=== PATIENT | female | born 1960 | race Caucasian/White ===

== ENCOUNTER 2025-06-18 05:17 | Observation (INO) ==
--- NOTE | 2025-05-14 11:24 | PAT Medication Instructions ---
Medication Instructions Date of Service May 14, 2025 Home Medications lysine 500 mg tablet 500 mg PO QAM multivitamin 1 tab PO QAM paroxetine HCl 10 mg tablet (Paxil) 10 mg PO QAM STOP taking 2 weeks before surgery (or as soon as possible if surgery is within 2 weeks) lysine 500 mg tablet 500 mg PO QAM DO NOT take the morning of surgery multivitamin 1 tab PO QAM Take morning of surgery With a small sip of water, OTHERWISE NOTHING TO EAT OR DRINK AFTER MIDNIGHT: paroxetine HCl 10 mg tablet (Paxil) 10 mg PO QAM Other Notes If you have any questions please call us at [phone] or [phone] or [phone] or [phone]
--- NOTE | 2025-05-18 10:20 | Anesthesiology Consultation ---
Date of Service May 18, 2025 Assessment & Plan (1) Encounter for pre-operative examination: - Outpatient joint assessment: Patient is currently scheduled for inpatient pathway. If re-evaluated and patient/surgeon requests outpatient pathway, patient is acceptable candidate for outpatient joint program from anesthesia standpoint pending surgeon's office assessment of pt motivation/support/completion of same day joint program preop requirements. Chart Review Chart Review: Acceptable Risk for Surgery and Patient seen in Pre Admission Testing Teaching & Discussion Pre-Anesthesia Teaching/Discussion Notes: Instructed NPO after midnight before surgery, except medications with 15 cc of water. Medication instructions provided according to the PAT guidelines. History Surgery Operation Date: 06/18/25 10:15 Proposed Procedures p Left Anterior Total Hip Arthroplasty - Luciano Mead, Height/Weight Height: 5 ft 4 in Weight: 71.7 kg Allergies Allergy/AdvReac Type Severity Reaction Status Date / Time pseudoephedrine Allergy Severe heart Verified 05/14/25 09:21 racing, "lips turned blue" shellfish derived Allergy Severe throat Verified 05/14/25 09:24 swelling Penicillins Allergy Intermediate Rash Verified 05/14/25 09:21 sulfamethoxazole Allergy Intermediate Rash Verified 05/14/25 09:21 [From Bactrim] trimethoprim [From Bactrim] Allergy Intermediate Rash Verified 05/14/25 09:21 Medications Home Medications Medication Instructions Recorded Confirmed Last Taken lysine 500 mg tablet 500 mg PO QAM 05/14/25 05/14/25 Unknown multivitamin 1 tab PO QAM 05/14/25 05/14/25 Unknown paroxetine HCl 10 mg tablet (Paxil) 10 mg PO QAM 05/14/25 05/14/25 Unknown Past Medical History Medical History Anxiety Osteoarthritis Patient denies h/o stroke, seizures, heart attack, heart failure, DM, HTN, blood clots/DVTs or blood transfusions. Exercise / Class Metabolic Activity II 4-5 Yardwork/Stairs/Walk up hill (denies chest discomfort or shortness of breath with one flight of stairs) Past Family History Family History (Updated 05/18/25 @ 10:32 by Bibi Snyder PA-C) Mother History of anesthesia reaction pt unsure of the anesthesia problems - denies any temperature regulatory issues, denies the need for a ventilator after anesthesia. PONV. Past Surgical History Surgical History (Updated 05/18/25 @ 10:32 by Bibi Snyder PA-C) H/O removal of cyst left middle finger History of dental surgery extraction History of laparoscopy exploratory for infertility S/P colonoscopy with polypectomy Past Anesthesia History Other (see above family history re anesthesia) History of PONV No Hx of PONV and No Hx of Motion Sickness Social History Smoking Status: Former smoker Do You Dip or Chew Tobacco: No Smoking End Date: ~2016 Hx Alcohol Use: Yes Alcohol type: wine Alcohol Intake Frequency Comment: 2-4 glasses of wine daily; denies any h/o withdrawal Hx Substance Use: No substance use type: does not use Review of Systems Snoring, denies witnessed apneas. Patient denies chest pain, shortness of breath, dyspnea on exertion, reflux, fever, chills, cough, wheezing, or palpitations. Physical Exam Vital Signs Vitals BP 123/78 P 74 TEMP 98.3 SP02 94% on RA RESP 18 Physical Patient resting comfortably in chair in no acute distress, alert and oriented, responding appropriately throughout visit Full cervical extension range of motion without pain TMD 3.5 finger breadths Mallampati Score 2 Dentition: several missing teeth, denies chipped or loose teeth, caps/crowns, i mplants or bridges Lungs: normal respiratory effort. Good air movement, clear throughout to auscultation, no adventitious breath sounds Cardiac: regular rate and rhythm, no murmurs noted Carotid arteries: negative bruit bilat Lab Results Anesthesia Preop Results Results Anesthesia Widget: WBC 7.04 K/ul (4.8-10.8) 05/18/25 Hgb 12.8 g/dl (12.0-16.0) 05/18/25 Hct 38.2 % (37.0-47.0) 05/18/25 Plt 302 K/uL (130-400) 05/18/25 Na 136 mmol/L (136-145) 05/18/25 K 4.8 mmol/L (3.5-5.1) 05/18/25 Cl 102 mmol/L (98-107) 05/18/25 CO2 28 mmol/L (21-32) 05/18/25 BUN 15 mg/dl (6-23) 05/18/25 Creat 0.58 mg/dl (0.6-1.2) L 05/18/25 Glucose Level 92 mg/dl (70-99(Fasting)) 05/18/25 PT 10.6 Seconds (9.0-12.0) 05/18/25 PTT 26 Seconds (21-31) 05/18/25 INR 1.0 (0.9-1.1) 05/18/25 Blood Type AB Positive 05/18/25 Antibody Screen NEGATIVE 05/18/25 Testing Electrocardiogram Date: 05/18/25 NSR, rate [address] abnormality Other Testing Chest CT Low dose scan 07/21/24 Mild emphysematous changes. Bibasilar subsegmental atelectatic changes. Multiple pulmonary nodules, benign appearance of behavior. No new/unknown potentially significant incidental findings requiring additional evaluation
--- NOTE | 2025-06-14 11:52 | History & Physical Report ---
Date of Service June 14, 2025 History of Present Illness Chief Complaint: Osteoarthritis left hip. Primary Care Provider: NO PCP Mana is a pleasant 65-year-old female who has been dealing with chronic increasing left hip and groin pain. She saw another provider in our office. X- rays and clinical exam have been diagnostic for advanced arthritis of left hip. After failing conservative treatment, she has elected proceed with a left anterior total of arthroplasty. Allergies Allergy/AdvReac Type Severity Reaction Status Date / Time pseudoephedrine Allergy Severe heart Verified 05/14/25 09:21 racing, "lips turned blue" shellfish derived Allergy Severe throat Verified 05/14/25 09:24 swelling Penicillins Allergy Intermediate Rash Verified 05/14/25 09:21 sulfamethoxazole Allergy Intermediate Rash Verified 05/14/25 09:21 [From Bactrim] trimethoprim [From Bactrim] Allergy Intermediate Rash Verified 05/14/25 09:21 Home Medications Medication Instructions Recorded Confirmed Type lysine 500 mg tablet 500 mg PO QAM 05/14/25 05/14/25 History multivitamin 1 tab PO QAM 05/14/25 05/14/25 History paroxetine HCl 10 mg tablet (Paxil) 10 mg PO QAM 05/14/25 05/14/25 History Past Med/Surg History Problem List Encounter for pre-operative examination Osteoarthritis of left hip Medical History Anxiety Osteoarthritis Surgical History (Updated 05/18/25 @ 10:32 by Bibi Snyder PA-C) History of dental surgery extraction H/O removal of cyst left middle finger History of laparoscopy exploratory for infertility S/P colonoscopy with polypectomy Family History (Updated 05/18/25 @ 10:32 by Bibi Snyder PA-C) Mother History of anesthesia reaction pt unsure of the anesthesia problems - denies any temperature regulatory issues, denies the need for a ventilator after anesthesia. PONV. Social History Smoking Status: Former smoker Tobacco Type: Cigarettes Smoking End Date: ~2016; Second Hand Exposure: No; Do You Dip or Chew Tobacco: No; Tobacco Cessation Education Requested by Patient: No Hx Alcohol Use: Yes Alcohol type: wine Hx Substance Use: No Preferred Language: Urdu Communication Ability: Effective Chemical Radiation Technician Required: No Beliefs That Will Affect Care: None Current Living Situation: Spouse Other Information That Helps Us Care for You: No Feels Safe at Home: Yes Safety Concerns: Feels Safe At This Time Assistive Devices: Glasses Review of Systems All systems reviewed & are unremarkable except as noted in HPI & below. Physical Exam . Results & Data Results & Data Laboratory Results . Diagnostic Findings . PG Care Time/CCT Total # of Minutes Spent Total Time Spent with Patient: Total time spent is greater than 50% in coordination of care (as documented) at patient's floor/unit and/or counseling patient: Coding Level of Care Code None
--- NOTE | 2025-06-14 11:53 | History & Physical Report ---
Date of Service June 14, 2025 Assessment & Plan (1) Osteoarthritis of left hip: We will proceed with a left anterior total of arthroplasty. Postoperatively, she will be started on aspirin for DVT prophylaxis and kept overnight in the hospital for postop medical management. She plans to use energy physical th erapy upon discharge. History of Present Illness Chief Complaint: Osteoarthritis left hip. Primary Care Provider: NO PCP Mana is a pleasant 65-year-old female who has been dealing with chronic increasing left hip and groin pain. She saw another provider in our office. X- rays and clinical exam have been diagnostic for advanced arthritis of left hip. After failing conservative treatment, she has elected proceed with a left anterior total of arthroplasty. Allergies Allergy/AdvReac Type Severity Reaction Status Date / Time pseudoephedrine Allergy Severe heart Verified 05/14/25 09:21 racing, "lips turned blue" shellfish derived Allergy Severe throat Verified 05/14/25 09:24 swelling Penicillins Allergy Intermediate Rash Verified 05/14/25 09:21 sulfamethoxazole Allergy Intermediate Rash Verified 05/14/25 09:21 [From Bactrim] trimethoprim [From Bactrim] Allergy Intermediate Rash Verified 05/14/25 09:21 Home Medications Medication Instructions Recorded Confirmed Type lysine 500 mg tablet 500 mg PO QAM 05/14/25 05/14/25 History multivitamin 1 tab PO QAM 05/14/25 05/14/25 History paroxetine HCl 10 mg tablet (Paxil) 10 mg PO QAM 05/14/25 05/14/25 History Past Med/Surg History Problem List Encounter for pre-operative examination Osteoarthritis of left hip Medical History Anxiety Osteoarthritis Surgical History History of dental surgery extraction H/O removal of cyst left middle finger History of laparoscopy exploratory for infertility S/P colonoscopy with polypectomy Family History Mother History of anesthesia reaction pt unsure of the anesthesia problems - denies any temperature regulatory issues, denies the need for a ventilator after anesthesia. PONV. Social History Smoking Status: Former smoker Tobacco Type: Cigarettes Smoking End Date: ~2016; Second Hand Exposure: No; Do You Dip or Chew Tobacco: No; Tobacco Cessation Education Requested by Patient: No Hx Alcohol Use: Yes Alcohol type: wine Hx Substance Use: No Preferred Language: [place] Communication Ability: Effective Crtt Required: No Beliefs That Will Affect Care: None Current Living Situation: Spouse Other Information That Helps Us Care for You: No Feels Safe at Home: Yes Safety Concerns: Feels Safe At This Time Assistive Devices: Glasses Review of Systems All systems reviewed & are unremarkable except as noted in HPI & below. Physical Exam On physical exam the left hip, she has decreased range of motion. She has pain with internal/external rotation. All of her pain is located in the groin.. Constitutional WD/WN, vitals as above Eyes PERRL, conjunctivae normal, anicteric sclerae ENMT external ear and nose normal, oropharynx normal Neck trachea midline, no thyromegaly Respiratory normal respiratory effort Cardiovascular RRR, no murmur, no edema Gastrointestinal (Abdomen) normal bowel sounds, soft, nontender, no hepatosplenomegaly Psychiatric A+Ox3, euthymic affect Results & Data Results & Data Laboratory Results . Diagnostic Findings X-rays of the left hip show advanced osteoarthritis with joint space narrowing, osteophyte formation, and [id number] articulation. PG Care Time/CCT Total # of Minutes Spent Total Time Spent with Patient: Total time spent is greater than 50% in coordination of care (as documented) at patient's floor/unit and/or counseling patient: Coding Level of Care Code None Diagnoses Osteoarthritis of left hip M16.12
[2025-06-18] MEDS: LR 500ML BOLUS, THEN 15ML/HR IV SCH (05:56)
[2025-06-18] MEDS: FAMOTIDINE 20 MG TAB PO SCH (05:57)
[2025-06-18] MEDS: GABAPENTIN 300 MG CAP PO SCH (05:57)
[2025-06-18] MEDS: LR 60ML/HR IV SCH (05:57)
[2025-06-18] MEDS: ACETAMINOPHEN 500 MG TAB PO SCH ×2 (05:57→13:45)
[2025-06-18] MEDS: dexAMETHasone**PF** 10 MG/ML VIAL IV SCH (05:57)
[2025-06-18] MEDS ORDERED: LIDOCAINE 2% 2 ML VIAL/AMP(20MG/ML) INFIL ONE (06:03)
[2025-06-18] MEDS ORDERED: BUPIVACAINE 0.5 % 5 MG/1 ML PF 10ML VIAL ONE (06:04)
[2025-06-18] MEDS ORDERED: MIDAZOLAM HCL 1 MG/ML 2ML VIAL ONE (06:06)
[2025-06-18] MEDS ORDERED: PROPOFOL IV EMULSION 10 MG/ML 100 ML VIAL IV ONE (06:14)
[2025-06-18] MEDS ORDERED: ATROPINE SULFATE 0.1 MG/ML 10ML SYR IV PRN (06:29)
[2025-06-18] MEDS ORDERED: ONDANSETRON INJ 2 MG/ML 2 ML VIAL IV PRN (06:29)
--- NOTE | 2025-06-18 06:30 | History & Physical Bridge Note ---
Date of Service June 18, 2025 History & Physical Bridge Note I have examined the patient, reviewed the History & Physical and in the interval since the performance of the History & Physical I have noted the following changes of clinical significance: no changes noted
[2025-06-18] MEDS: TRANEXAMIC ACID 1,000 MG **IV Pre-op IV SCH (06:36)
[2025-06-18] MEDS: ORTHO JOINT ANESTHETIC ONE (07:31)
[2025-06-18] MEDS ORDERED: ONDANSETRON INJ 2 MG/ML 2 ML VIAL ONE (07:38)
[2025-06-18] MEDS: ROPIV 0.5% 246mg, Ketorolac 30mg, EPINEPHrine 0.5mg in NSS INFIL SCH (07:40)
--- NOTE | 2025-06-18 07:57 | Operative Report ---
PG Post Operative Report Pre & Post Diagnosis Operation Date: 06/18/25 07:00 Pre-Op Diagnosis: Osteoarthritis of left hip Post-Op Diagnosis: Osteoarthritis of left hip I identified the patient and participated in the time-out.: Yes Procedure Operation Date: 06/18/25 07:00 Actual Procedures p Left Anterior Total Hip Arthroplasty(Left) - Luciano Mead DO Surgeon Luciano Mead DO [facility] Consultant Perry Javed PA-C Estimated Blood Loss 200 Findings Consistent with Post-Op Diagnosis Specimens Left femoral head Description of Procedure Implants used I used a [employer]immer[employer]omet total hip arthroplasty system with a size 1 standard offset Z1 stem, a 50 mm G7 cup with a 25mm screw, an E1 polyethylene liner, a 36 mm ceramic head with a +3.5 neck. Mana arrived at the hospital for the above procedure. She was seen in the preoperative holding area and the operative extremity was identified and signed. She was given a spinal anesthetic, a preoperative antibiotic, and TXA. She was then taken back to the operating room and laid on the table in the supine position. She was given basic sedation. The operative leg was secured to a Puristst leg positioner. The hip was then prepped and draped in sterile fashion. A timeout was done and the patient and the operative extremity was properly identified. An anterior approach was used. Dissection was taken down through the fascia and the tensor muscle belly was retracted laterally and the rectus was retracted medially. The circumflex vessels were identified and ligated. The capsule was then incised and tagged for later repair. The femoral neck was then cut and the femoral head was removed. The acetabulum was exposed. Time was spent doing a complete circumferential labral release. Sequential reaming of the acetabulum up to a size 49 reamer was done. Final reamings were done under fluoroscopy to ensure appropriate version. A Biomet 50 mm G7 cup was then impacted into place. A single 25 mm screw was placed. The E1 polyethylene liner was then snapped into place. Surrounding soft tissues were then injected with 100 cc of an orthopedic pain control cocktail. The proximal femur was then exposed. Sequential broaching up to a size 1 broach was done. Off that broach a size 36 head with a +3.5 neck was trialed. The hip was reduced and fluoroscopic images showed anatomic alignment of the implants in acceptable length. The broach was removed. The final size 1 standard offset Z1 stem was then impacted into place. A ceramic 36 mm head with a +3.5 neck was then impacted onto the stem and the hip was reduced. Final fluoroscopic images showed anatomic alignment of the hip. The capsule was then closed with #1 Vicryl suture. A dilute betadyne lavage was then done for 3 minutes. The joint was then irrigated with normal saline solution. The fascia was closed with #1 PDS suture. Skin was closed with 2-0 Vicryl, rhys, and a Silverlon dressing. She was then transferred to a hospital bed and taken to the post anesthesia care unit in stable condition. She tolerated the procedure well. Perry Javed PA-C, was present for the entire procedure. He was critical for patient positioning, prepping, draping, retraction exposure, wound closure and application of sterile dressing. I attest to the content of the Intraoperative Record and any orders documented therein. Any exceptions are noted below.
--- NOTE | 2025-06-18 08:18 | Fluoroscopy Report ---
FL hip LT 1V CLINICAL HISTORY: LEFT ANTERIOR HIP COMPARISON STUDY: None FLUOROSCOPY TIME: 26 seconds FLUOROSCOPY IMAGES: 1 EXPOSURE DOSE: 3 mGy FINDINGS: Fluoroscopy was provided for left hip prosthesis. IMPRESSION: Intraoperative fluoroscopy. ACT 112: Negative or not required by law. Electronically signed by: Jamaal Melara M.D. 06/18/2025 8:17 AM
--- NOTE | 2025-06-18 09:32 | XRay Report ---
XR hip 1V LT w pelvis CLINICAL HISTORY: IN PACU - Post Surgical COMPARISON: None FINDINGS: Left hip prosthesis shows no hardware complication. There is expected soft tissue gas. IMPRESSION: Unremarkable postoperative exam. ACT 112: Negative or not required by law. Electronically signed by: Jamaal Melara M.D. 06/18/2025 9:30 AM
[2025-06-18] MEDS: KETOROLAC TROMETHAMINE 15 MG/ML VIAL IV SCH (10:10)
--- NOTE | 2025-06-18 16:28 | Anesthesiology Progress Note ---
Date of Service June 18, 2025 Anesthesia Post Procedure Vital Signs Vital Signs: Temp Pulse Pulse Resp BP Pulse Ox O2 Del Method 06/18/25 14:46 36.8 C 90 16 111/71 93 Room Air 06/18/25 12:55 36.5 C 82 16 113/75 96 Room Air 06/18/25 12:25 36.5 C 86 14 100/62 96 Room Air 06/18/25 11:55 36.3 C L 82 14 95 Room Air 06/18/25 11:25 36.3 C L 80 14 101/65 95 Room Air 06/18/25 10:55 36.5 C 82 14 96 Room Air 06/18/25 10:25 36.4 C L 80 16 108/64 97 Room Air 06/18/25 09:55 36.4 C L 86 16 99/63 L 94 Room Air 06/18/25 09:30 88 14 95/56 L 96 Nasal Cannula 06/18/25 09:20 88 14 97/56 L 96 Nasal Cannula 06/18/25 09:10 78 16 98/60 L 96 Nasal Cannula 06/18/25 09:00 85 14 101/55 L 92 Room Air 06/18/25 08:50 36.3 C L 90 14 96/58 L 93 Room Air 06/18/25 08:40 92 H 14 101/53 L 92 Room Air 06/18/25 08:30 95 H 14 104/61 94 Room Air 06/18/25 08:23 36.3 C L 99 H 14 99/58 L 95 Room Air 06/18/25 05:39 36.7 C 80 18 158/78 H 98 Room Air O2 Flow Rate 06/18/25 14:46 06/18/25 12:55 06/18/25 12:25 06/18/25 11:55 06/18/25 11:25 06/18/25 10:55 06/18/25 10:25 06/18/25 09:55 06/18/25 09:30 1 06/18/25 09:20 1 06/18/25 09:10 1 06/18/25 09:00 06/18/25 08:50 06/18/25 08:40 06/18/25 08:30 06/18/25 08:23 06/18/25 05:39 Transfer of Care Handoff Completed per policy Notes Mental Status: alert / awake / arousable and participated in evaluation Patient Amnestic to Procedure: Yes Nausea / Vomiting: adequately controlled Pain: adequately controlled Airway Patency, RR, SpO2: stable & adequate BP & HR: stable & adequate Hydration State: stable & adequate Neuraxial Anesthesia: was administered and sensory block is resolving Anesthetic Complications: no major complications apparent and Pt Satisfied with anesthetic care
[2025-06-18] MEDS: ASPIRIN 81 MG ECTAB PO SCH (20:13)
[2025-06-18 23:10] VITALS: TEMP 97.9
[2025-06-19 07:48] VITALS: BP 133/84; PULSE 59; RESP 16; O2SAT 96
--- NOTE | 2025-06-19 09:52 | Orthopedic Progress Note ---
Date of Service June 19, 2025 Assessment & Plan (1) S/P total left hip arthroplasty: * Continue Current Treatment * Disposition: home * Daily treatment: Physical Therapy/ Occupational Therapy per protocol * Weight bearing status: WBAT, no hip precautions * Continue to monitor for ABLA * Pain control * DVT prophylaxis, ASA * Office/hospital f/u 2 weeks for progress check and staple/suture removal * Plan for discharge today pending PT/OT clearance Subjective .Active Problems: S/p left BRICE POD 1 65 y/o female s/p left BRICE. Doing well overall, pain managed and improved function. Denies fever/chills, chest pain/SOB, nausea/vomiting. Otherwise no complaints. Review of Systems All systems reviewed & are unremarkable except as noted in HPI & below. Physical Exam . left hip surgical dressing CDI, not removed for exam. Otherwise no obvious deformity or overlying skin changes. Diffuse TTP proximal thigh and hip region. Otherwise no specific tenderness of distal thigh, lower leg, foot/ankle. AROM hip flexion intact. AROM foot/ankle intact. Sensation intact plantar/dorsal foot. Brisk capillary refill. Results & Data Results & Data Laboratory Results . Diagnostic Findings . PG Care Time/CCT Total # of Minutes Spent Total Time Spent with Patient: Total time spent is greater than 50% in coordination of care (as documented) at patient's floor/unit and/or counseling patient: Coding Level of Care Code 55156 Post Operative Follow-Up Diagnoses S/P total left hip arthroplasty Z96.642
== END 2025-06-19 11:01 | disposition home or self-care (01) ==
LOC: ASU 05:17 → 3E 05:17